=== PATIENT | male | born 1950 | race Caucasian/White ===

== ENCOUNTER 2019-03-17 12:52 | Inpatient (IN) | payer MEDICARE, BC ==
[~2019-03-17] VITALS: Ht 165.1 cm; Wt 68.0 kg
[2019-03-17] MEDS ORDERED: IV NORMAL SALINE 1000 ML BAG IV ONE ×2 (13:15→14:45)
[2019-03-17] MEDS ORDERED: ALBUTEROL SULFATE 2.5 MG/3 ML NEBU CONT NEB ONE (13:15)
[2019-03-17] MEDS ORDERED: BENZONATATE 100 MG CAPSULE PO ONE (13:15)
[2019-03-17] MEDS ORDERED: ALBUTEROL SULFATE 2.5 MG/3 ML NEBU ONE (13:21)
[2019-03-17] MEDS ORDERED: BENZONATATE 100 MG CAPSULE ONE (13:22)
[2019-03-17 13:26] LABS: BASOPHILS % (AUTO) 0.1 % (0.0-2.0); EOSINOPHILS # (AUTO) 0.2 K/uL (0.0-0.7); EOSINOPHILS % (AUTO) 2.5 % (0.0-7.0); HEMATOCRIT 38.6 % (36.7-47.1); HEMOGLOBIN 12.9 g/dL (12.5-16.3); LYMPHOCYTES # (AUTO) 0.4 K/uL (20.0-40.0); LYMPHOCYTES % (AUTO) 6.4 % (20.5-51.5); MEAN CORPUSCULAR HEMOGLOBIN 28.7 uug (23.8-33.4); MEAN CORPUSCULAR HGB CONC 33 g/dL (32.5-36.3); MEAN CORPUSCULAR VOLUME 85.9 fL (73.0-96.2); MONOCYTES # (AUTO) 0.5 K/uL (2.0-10.0); MONOCYTES % (AUTO) 7.3 % (0.0-11.0); NEUTROPHILS # (AUTO) 5.6 K/uL (1.8-8.9); NEUTROPHILS % (AUTO) 83.7 % (38.5-71.5); PLATELET COUNT (AUTO) 95 K/uL (152-348); WHITE BLOOD COUNT (AUTO) 6.7 K/uL (3.6-10.2)
[2019-03-17] MEDS ORDERED: ALFU10TA10 PO (13:31)
[2019-03-17] MEDS ORDERED: IRBE150T28 PO (13:31)
[2019-03-17] MEDS ORDERED: ROSU5TAB13 PO (13:31)
[2019-03-17] MEDS ORDERED: METF-442 PO (13:31)
[2019-03-17] MEDS ORDERED: CLOP75TA15 PO (13:31)
[2019-03-17] MEDS ORDERED: ALLO300T2 PO (13:31)
[2019-03-17 13:38] LABS: CREATININE 2.2 mg/dL (0.6-1.3); POTASSIUM 4.3 mmol/L (3.5-5.1)
[2019-03-17 13:50] LABS: BILIRUBIN,DIRECT 0.1 mg/dL (0.0-0.2); BILIRUBIN,TOTAL 0.6 mg/dL (0.2-1.0); TOTAL PROTEIN, SERUM 6.7 g/dL (6.4-8.2)
[2019-03-17 13:59] LABS: EOSINOPHILS % (MANUAL) 1 % (0-8); LYMPHOCYTES % (MANUAL) 17 % (20-40); MONOCYTES % (MANUAL) 5 % (2-10); NEUTROPHILS % (MANUAL) 77 % (42-75)
[2019-03-17] MEDS ORDERED: CEFTRIAXONE 1 G in IV DEXTROSE 5% 50 ML IV ONE (14:45)
[2019-03-17] MEDS ORDERED: AZITHROMYCIN IV 500 MG in IV DEXTROSE 5% 250 ML IV ONE (14:45)
--- NOTE | 2019-03-17 14:46 | NUR ---
Paged [facility]. Waiting for Kylee to call back.
--- NOTE | 2019-03-17 14:55 | NUR ---
[facility] loss prevention consultant Ellie Pichardo acceted patient
[2019-03-17] MEDS ORDERED: CEFTRIAXONE 1 G VIAL ONE (14:58)
[2019-03-17] MEDS ORDERED: AZITHROMYCIN 500 MG VIAL IV ONE (15:07)
[2019-03-17] MEDS ORDERED: ONDANSETRON 4 MG/2 ML VIAL IV PRN (15:15)
[2019-03-17] MEDS ORDERED: IV NS 1000 ML 1,000 ML IV PRN (15:15)
--- NOTE | 2019-03-17 15:20 | NUR ---
RECEIVED PATIENT FROM ED 68 YEARS OLD MALE BY HAKEEM TO ROOM 307 WITH DX OF NON STEMI ELEVATION AND POSSIBLE PNEUMONIA PATIENT IS ALERT AND ORIENTED DENIES PAIN OR DISCOMFORTS AT THIS TIME ON ROOM AIR WITH NO S/S OF SOB AT THIS TIME HE HAS A HEP LOCK RIGHT FOREARM WITH ATB INFUSING FROM ED PATIENT ORIENTED TO THE ROOM AND HOSPITAL PROTOCOL MADE COMFORTABLE AFEBRILE AT THIS TIME.
[2019-03-17] MEDS ORDERED: INSULIN REGULAR, HUMAN 300 UNIT/3 ML VIAL SQ PRN (15:30)
[2019-03-17] MEDS ORDERED: DEXTROSE 50% 50 ML DISP.SYRIN IV PRN (15:30)
[2019-03-17] MEDS ORDERED: IV NS 1000 ML 1,000 ML IV ONE (15:30)
[2019-03-17] MEDS ORDERED: HYDROCODONE BIT/HOMATROPINE 5 ML UDC ONE (15:36)
[2019-03-17] MEDS: HYDROCODONE BIT/HOMATROPINE 5 ML UDC PO PRN (15:36)
[2019-03-17 15:49] LABS: *BILIRUBIN,URIN NEGATIVE (NEGATIVE); *BLOOD, URINE 2+ (NEGATIVE); *CLARITY,URINE SLIGHTLY CLOUDY (CLEAR); *COLOR,URINE DARK YELLOW (YELLOW); *KETONES,URINE NEGATIVE (NEGATIVE); *UROBILINOGEN,URINE 0.2 E.U./dl (NORMAL); LEUKOCYTE ESTERASE ,URINE NEGATIVE (NEGATIVE); NITRITE, URINE NEGATIVE (NEGATIVE); PH,URINE 5.5 (5.0-8.0); UGLUCOSE NEGATIVE (NEGATIVE)
[2019-03-17 16:14] LABS: WBC,URINE 0-3 /HPF (0-3)
[2019-03-17 16:16] LABS: BACTERIA,URINE FEW /HPF (NONE SEEN)
[2019-03-17 16:18] LABS: SQUAMOUS EPITHELIAL CELL,UR FEW /HPF (NONE SEEN); URINE AMORPHOUS URATE MODERATE /HPF
[2019-03-17 16:27] VITALS: BP 105/59
--- NOTE | 2019-03-17 16:39 | NUR ---
PHARMACY NOTES ( VANCOMYCIN DOSING ) S: 68 YO male with complain of SOB, DX of PNA ordered Zosyn and Vancomycin per pharmacy O: BUN/SCR 29/2.2, WBC 6.7, TEMP 99.3, DOSING WT 150 LBS A/P: will dose Vancomycin as 1 gm IVPB q28h. Estimated peak of 38 and trough of 17.8. start first dose today @ 1700. Plan to order trough prior to 4th dose if renal fxn remains stable.Will continue to monitor and adjust the dose as needed.
--- NOTE | 2019-03-17 16:47 | NUR ---
ORDER FOR A LITER OF NS SEEN ON THE EMAR SO I CALLED ED TO CONFIRM HOW MANY LITERS WAS ORDERED AND DR BRO STATED TO NOT GIVE THIS ONE LITER PATIENT ALREADY GOT 2.5 LITERS FROM THE ER DR BRO STATED WILL SEND A MESSAGE TO [facility].
[2019-03-17] MEDS: BLOOD SUGAR DIAGNOSTIC 1 EACH STRIP VI SCH ×2 (16:48→20:24)
[2019-03-17] MEDS ORDERED: VANCOMYCIN IV 1 G in PREMIXED 0 EACH IV SCH (17:00)
[2019-03-17] MEDS: PIPERACILLIN/TAZOBACTAM/D5W 50 ML IV SCH ×2 (17:30→23:02)
--- NOTE | 2019-03-17 17:54 | NUR ---
CONTINUE ON ATB ORDERED WITH NO ADVERSE OR ALLERGIC REACTIONS AT THIS TIME BLOOD SUGAR IS 179 BUT PATIENT REFUSED TO TAKE HIS REGULAR INSULIN ORDERED.
[2019-03-17] MEDS ORDERED: PIPERACILLIN SODIUM/TAZOBACTAM 3.375 G in IV DEXTROSE 5% 50 ML IV SCH (18:00)
[2019-03-17 20:00] VITALS: BP 114/59
[2019-03-17] MEDS: ACETAMINOPHEN 325 MG TABLET PO PRN (20:24)
--- NOTE | 2019-03-17 20:33 | NUR ---
patient had blood sugar of 160 and refusing insulin at this time despite education.
--- NOTE | 2019-03-17 21:30 | NUR ---
patient had a temperature of 100.2 at beginning of shift. patient was warm to touch and flushed skin color of the face. medicated with Tylenol and rechecked right now. temperature is at 99.2. will continue to monitor patient and continue plan of care.
[2019-03-18 00:44] VITALS: BP 96/54
[2019-03-18] MEDS: HYDROCODONE BIT/HOMATROPINE 5 ML UDC PO PRN (02:34)
[2019-03-18] MEDS: ACETAMINOPHEN 325 MG TABLET PO PRN ×2 (03:31→09:24)
[2019-03-18 04:00] VITALS: BP 99/52
[2019-03-18] MEDS: PIPERACILLIN/TAZOBACTAM/D5W 50 ML IV SCH ×2 (05:02→12:19)
[2019-03-18] MEDS: BLOOD SUGAR DIAGNOSTIC 1 EACH STRIP VI SCH ×2 (06:32→12:17)
--- NOTE | 2019-03-18 06:35 | NUR ---
patient rectal temperature noted at 101.6 at this time. critical lab value reported for troponin 0.[address] hussein joya contacted. no new orders at this time.
--- NOTE | 2019-03-18 06:37 | NUR ---
patient slept intermittently. no signs of acute distress. v/s stable. patient was coughing during the night and Hydromet was administered. patient tolerated well. no adverse effects. patient had oral temperature of 103.1 and 104.7 rectal temperature at 0330. Tylenol administered, cooling measures provided with ice packs at bilateral axillary and cooling blanket provided. temperature re-checked 1 hour later rectally, temperature decreasing at 103.1. current temperature 101.6 noted, charge aware of situation.
[2019-03-18] MEDS ORDERED: PANTOPRAZOLE SODIUM 40 MG TABLET.DR PO SCH (07:00)
--- NOTE | 2019-03-18 08:50 | NUR ---
PATIENT STILL WITH COOLING BLANKET AND ICE PACKS BUT TEMP STILL FLUCTUATING UP AND DOWN CURRENTLY ITS 103.4 TOO EARLY TO GIVE TYLENOL PATIENT ALSO C/O TOO COLD AND COMPLAINED OF BEING CONSTIPATED CALLED [facility] AND NOTIFIED HER STATED TO CONTINUE COOLING MEASURES AND ORDERED DULCOLAX SUPPOSITORY AND NOTED PATIENT AWARE REFUSED PRUNE JUICE AT THIS TIME.
[2019-03-18] MEDS ORDERED: ALFUZOSIN HCL 10 MG TAB.SR.24H PO SCH (09:00)
[2019-03-18] MEDS ORDERED: ALLOPURINOL 300 MG TABLET PO SCH (09:00)
[2019-03-18] MEDS ORDERED: CLOPIDOGREL 75 MG TABLET PO SCH (09:00)
[2019-03-18] MEDS ORDERED: PANTOPRAZOLE SODIUM 40 MG VIAL IV SCH (09:00)
[2019-03-18] MEDS ORDERED: BISACODYL 10 MG SUPP.RECT RC PRN (09:00)
[2019-03-18] MEDS ORDERED: VANCOMYCIN IV 1,000 MG in IV DEXTROSE 5% 250 ML IV ONE (10:00)
--- NOTE | 2019-03-18 10:34 | NUR ---
ASSISTED INTO THE W/CHAIR AND TAKEN DOWN TO THE RADIOLOGY DEPT FOR CT ABDOMEN CHEST AND PELVIS ORDERED PATIENT CONTINUES TO HAVE FEVER COOLING BLANKET ICE PACKS IN USE PATIENT MADE COMFORTABLE AND WILL CONTINUE TO OBSERVE.
[2019-03-18] MEDS ORDERED: IV NS 1000 ML 500 ML IV ONE (10:45)
[2019-03-18 11:15] LABS: BASOPHILS % (AUTO) 0.2 % (0.0-2.0); EOSINOPHILS # (AUTO) 0.3 K/uL (0.0-0.7); EOSINOPHILS % (AUTO) 3.9 % (0.0-7.0); HEMATOCRIT 35.3 % (36.7-47.1); LYMPHOCYTES # (AUTO) 0.3 K/uL (20.0-40.0); LYMPHOCYTES % (AUTO) 4.8 % (20.5-51.5); MEAN CORPUSCULAR HEMOGLOBIN 29.1 uug (23.8-33.4); MEAN CORPUSCULAR HGB CONC 34 g/dL (32.5-36.3); MEAN CORPUSCULAR VOLUME 85.8 fL (73.0-96.2); MONOCYTES # (AUTO) 0.3 K/uL (2.0-10.0); MONOCYTES % (AUTO) 4.4 % (0.0-11.0); NEUTROPHILS # (AUTO) 5.7 K/uL (1.8-8.9); NEUTROPHILS % (AUTO) 86.7 % (38.5-71.5); PLATELET COUNT (AUTO) 93 K/uL (152-348); RED BLOOD CELL COUNT(AUTO) 4.12 MIL/uL (4.06-5.63); WHITE BLOOD COUNT (AUTO) 6.6 K/uL (3.6-10.2)
[2019-03-18] MEDS ORDERED: ALBUTEROL SULFATE 2.5 MG/3 ML NEBU NEB PRN (11:15)
[2019-03-18] MEDS ORDERED: IPRATROPIUM BROMIDE 0.5 MG/2.5 ML NEBU NEB PRN (11:15)
[2019-03-18 11:24] LABS: CREATININE 1.4 mg/dL (0.6-1.3); POTASSIUM 4.1 mmol/L (3.5-5.1)
[2019-03-18 11:25] VITALS: BP 99/56
[2019-03-18 11:30] LABS: BILIRUBIN,TOTAL 0.7 mg/dL (0.2-1.0); MAGNESIUM 1.4 mg/dL (1.8-2.4); PHOSPHOROUS 2.1 mg/dL (2.5-4.9); TOTAL PROTEIN, SERUM 5.8 g/dL (6.4-8.2)
[2019-03-18] MEDS ORDERED: SODIUM PHOSPHATE MM 5 MM in IV DEXTROSE 5% 100 ML IV ONE (11:45)
[2019-03-18 11:51] LABS: THYROID STIMULATING HORMONE 2.282 mIU/mL (0.358-3.740)
[2019-03-18 12:07] LABS: BAND % (MANUAL) 6 % (0-10); EOSINOPHILS % (MANUAL) 3 % (0-8); LYMPHOCYTES % (MANUAL) 8 % (20-40); MONOCYTES % (MANUAL) 3 % (2-10); NEUTROPHILS % (MANUAL) 80 % (42-75)
[2019-03-18] MEDS ORDERED: HEPARIN/D5W DRIP 500 ML IV PRN (12:30)
--- NOTE | 2019-03-18 12:30 | NUR ---
DR YSIAN HERE TO SEE PATIENT WITH NEW ORDERS AND NOTED.
--- NOTE | 2019-03-18 12:47 | NUR ---
PHARMACY NOTES ( VANCOMYCIN DOSING ) S: To continue vancomycin dosing for this 68 YO male for DX of PNA O: BUN/SCR 15/1.4, WBC 6.6, TEMP 101.5 Vanco random level on 03/18 am: 7.9 (post vanco 1gm x1 on 03/17 at 1700) ht 165 cm wt 68 kg A/P: Due to unstable srcr, will dose by random level for now. Since vanco random level this am is 7.9 mcg/ml, will give vanco 1gm IVPB x1 today at 1000. Will check vanco random level in am for further dosing. Will start routine regimen when renal function stable. Will continue to monitor
[2019-03-18] MEDS: MAGNESIUM SULFATE/D5W 100 ML IV SCH ×3 (12:48→14:48)
[2019-03-18] MEDS ORDERED: HEPARIN SODIUM,PORCINE 5,000 UNITS/ML VIAL IV PRN (13:00)
[2019-03-18] MEDS ORDERED: HEPARIN SODIUM,PORCINE 5,000 UNITS/ML VIAL IV ONE (13:00)
--- NOTE | 2019-03-18 13:44 | NUR ---
BOLUS HEPARIN GIVEN ORDERED WAITING TO START THE DRIP WHEN AVAILABLE FROM THE PHARMACY
--- NOTE | 2019-03-18 14:30 | NUR ---
PATIENT DISCHARGED PICKED UP BY THE AMBULANCE TO [facility] IN SATISFACTORY CONDITION WITH HIS FAMILY HERE WITH ALL OF HIS PERSONAL BELONGINGS SO FAR PATIENT RECEIVED 3 GRAMS OF MAGNESSIUM UNABLE TO GIVE THE SODIUM PHOS WAS ENDORSED TO BENITO NAJERA.
--- NOTE | 2019-03-18 15:00 | NUR ---
CALLED [facility] SPOKE WITH BENITO CARMEN RN AND REPORT GIVEN GIVEN FOR CONTINUING CARE. Addendum: 03/18/19 at 1840 by SEE CALLE RN CALLED AND GIVEN REPORT TO BENITO AT 1400
[2019-03-18 15:26] VITALS: BP 118/60
[2019-03-18] MEDS ORDERED: ATORVASTATIN 40 MG TABLET PO SCH (21:00)
[2019-03-18] MEDS ORDERED: CULTURELLE CAPSULE PO SCH (21:00)
== END 2019-03-18 16:30 | disposition short-term general hospital (02) | DRG 871 ==
LOC: ER 12:55 → TELE3 15:20
PROVIDERS: ADMIT Registered Nurse; ATTEND Registered Nurse
DX: A41.9 Sepsis, unspecified organism (principal); J18.9 Pneumonia, unspecified organism; I21.A1 Myocardial infarction type 2; N17.0 Acute kidney failure with tubular necrosis; I40.9 Acute myocarditis, unspecified; I33.9 Acute and subacute endocarditis, unspecified; J96.01 Acute respiratory failure with hypoxia; E44.0 Moderate protein-calorie malnutrition; E87.2 Acidosis; R65.20 Severe sepsis without septic shock; E78.5 Hyperlipidemia, unspecified; Z86.73 Personal history of transient ischemic attack (TIA), and cerebral infarction without residual deficits; Z79.02 Long term (current) use of antithrombotics/antiplatelets; Z79.84 Long term (current) use of oral hypoglycemic drugs; E11.9 Type 2 diabetes mellitus without complications; D69.6 Thrombocytopenia, unspecified; I11.0 Hypertensive heart disease with heart failure; I50.9 Heart failure, unspecified
CPT/HCPCS: 36415; 70030-TC; 71045; 71250; 83605; 83735; 84100; 84443; 85025; 85651; 85730; 87040; 87070; 87086; 87400; 93005; 93307; A4663; G0378; J0456; J0696; J1644; J1815; J2543; J3370; J3475; J3490; J7030; J7040; J7060; J8499